=== PATIENT | female | born 2000 | race American Indian/Alaskan Native ===

== ENCOUNTER 2020-11-03 18:34 | Outpatient (CLI) | payer OTHER ==
[2020-11-03 22:03] VITALS: BP 112/64
[2020-11-03] MEDS ORDERED: LACTATED RINGERS 1,000 ML IV ONE (22:33)
[2020-11-04 00:29] LABS: Bilirubin,Urine NEG (Negative); Blood,Urine NEG (Negative); Color,Urine Yellow (Yellow); Protein,Urine <15 mg/dL mg/dL (Negative); Urobilinogen,Urine < 2.0 mg/dL (<2.0)
== END 2020-11-04 01:02 | disposition home or self-care (01) ==
LOC: TRG 18:34 → APU 18:59 → TRG 11-04 01:02
PROVIDERS: ATTEND Obstetrics & Gynecology
DX: O42.913 Preterm premature rupture of membranes, unspecified as to length of time between rupture and onset of labor, third trimester (principal); O47.03 False labor before 37 completed weeks of gestation, third trimester; O99.513 Diseases of the respiratory system complicating pregnancy, third trimester; J45.909 Unspecified asthma, uncomplicated; Z3A.31 31 weeks gestation of pregnancy; Z87.891 Personal history of nicotine dependence
CPT/HCPCS: 36415; 59025; 81001; 84112; 96360

== ENCOUNTER 2020-12-08 16:07 | Outpatient (CLI) | payer OTHER ==
[2020-12-08 17:09] VITALS: BP 110/64
[2020-12-08] MEDS ORDERED: LACTATED RINGERS 1,000 ML IV ONE (17:10)
--- NOTE | 2020-12-08 19:23 | Ultrasound Report ---
US OB BPP wo non-stress, US OB limited INDICATION / CLINICAL INFORMATION: low fluid well being. COMPARISON: None available. FINDINGS: Single live fetus is seen in the uterus in cephalic presentation. JENNIFER is normal at 10.9. heart rate is 140. BPP is 8/8 IMPRESSION: Single live fetus in the uterus in cephalic presentation with heart rate 140. A normal amount o f amniotic fluid is seen. BPP is 8/8 Signer Name: Laurent Peguero MD FACR Signed: 12/08/2020 7:19 PM Workstation Name: [id number]
== END 2020-12-08 20:15 | disposition home or self-care (01) ==
LOC: TRG 16:07 → APU 16:10 → TRG 20:15
PROVIDERS: ATTEND Obstetrics & Gynecology
DX: O41.03X0 Oligohydramnios, third trimester, not applicable or unspecified (principal); Z3A.36 36 weeks gestation of pregnancy
CPT/HCPCS: 76815; 76819

== ENCOUNTER 2020-12-18 22:43 | Outpatient (CLI) | payer OTHER ==
[2020-12-18 23:29] VITALS: BP 139/78
[2020-12-19] MEDS ORDERED: LACTATED RINGERS 1,000 ML ONE (01:02)
[2020-12-19] MEDS ORDERED: AMPICILLIN/NS 2 GM/100 ML 2 GM/100 ML BAG IV ONE (01:02)
== END 2020-12-19 01:15 | disposition home or self-care (01) ==
LOC: TRG 22:43 → APU 22:43 → TRG 12-19 01:15
PROVIDERS: ATTEND Obstetrics & Gynecology
DX: O62.9 Abnormality of forces of labor, unspecified (principal); O99.343 Other mental disorders complicating pregnancy, third trimester; F41.9 Anxiety disorder, unspecified; F32.9 Major depressive disorder, single episode, unspecified; Z3A.38 38 weeks gestation of pregnancy
CPT/HCPCS: 59025; Q0177

== ENCOUNTER 2020-12-24 19:50 | Outpatient (CLI) | payer OTHER ==
[2020-12-24 20:43] VITALS: BP 114/63
[2020-12-24] MEDS ORDERED: hydrOXYzine PAMOATE 25 MG CAP PO ONE (20:55)
[2020-12-24] MEDS ORDERED: LACTATED RINGERS 1000 ML IV SOLN IV SCH (21:00)
[2020-12-24 21:32] LABS: Bacteria,Urine 1+ /HPF (Negative); Bilirubin,Urine NEG (Negative); Blood,Urine LG (Negative); Color,Urine Yellow (Yellow); Mucus,Urine FEW /HPF
[2020-12-24] MEDS ORDERED: MORPHINE 4 MG/1 ML INJ IM ONE (22:41)
== END 2020-12-24 23:01 | disposition home or self-care (01) ==
LOC: TRG 19:50 → APU 19:54 → TRG 23:01
PROVIDERS: ATTEND Obstetrics & Gynecology
DX: O62.9 Abnormality of forces of labor, unspecified (principal); O46.93 Antepartum hemorrhage, unspecified, third trimester; O99.513 Diseases of the respiratory system complicating pregnancy, third trimester; J45.909 Unspecified asthma, uncomplicated; O99.343 Other mental disorders complicating pregnancy, third trimester; F41.9 Anxiety disorder, unspecified; F32.9 Major depressive disorder, single episode, unspecified; Z3A.38 38 weeks gestation of pregnancy
CPT/HCPCS: 59025; 81001; 96360; 96361; 96372; J2270; J7120; Q0177

== ENCOUNTER 2022-02-02 15:47 | Emergency (ER) | payer MEDICAID, OTHER ==
[2022-02-02] MEDS ORDERED: METOCLOPRAMIDE 10 MG/2 ML INJ IV ONE (19:59)
[2022-02-02] MEDS ORDERED: diphenhydrAMINE 50 MG/ML VIAL IV ONE (19:59)
[2022-02-02] MEDS ORDERED: D5W/0.9% NACL 1,000 ML IV SCH (20:00)
[2022-02-02 20:47] LABS: Basophils % (Auto) 0.8 % (0.0-1.8); Eosinophils % (Auto) 0.4 % (0.0-4.3); Hematocrit 35.2 % (30.3-42.9); Hemoglobin 11.4 gm/dl (10.1-14.3); Lymphocytes # (Auto) 1.6 K/mm3 (1.2-5.4); Lymphocytes % (Auto) 32.3 % (13.4-35.0); Mean Corpuscular HGB Conc 32 % (30-34); Mean Corpuscular Volume 85 fl (79-97); Monocytes # (Auto) 0.4 K/mm3 (0.0-0.8); Monocytes % (Auto) 7.1 % (0.0-7.3); Platelet Count 235 K/mm3 (140-440); Red Blood Count 4.16 M/mm3 (3.65-5.03); Red Cell Distribution Width 15.9 % (13.2-15.2)
[2022-02-02 21:04] LABS: Alanine Aminotransferase 118 units/L (7-56); BUN/Creatinine Ratio 12; Blood Urea Nitrogen 6 mg/dL (7-17); Calcium 9.3 mg/dL (8.4-10.2); Hemolysis Index 4
[2022-02-02] MEDS ORDERED: SODIUM CHLORIDE 0.9% 1000 ML 1,000 ML IV ONE (21:37)
--- NOTE | 2022-02-02 21:42 | Emergency Department Report ---
ED N/V/D HPI - General Chief complaint: Nausea/Vomiting/Diarrhea Stated complaint: 13 WKS PREG/NV Time Seen by Provider: 02/02/22 19:58 Source: patient Mode of arrival: Ambulatory Limitations: No Limitations - History of Present Illness Initial comments: Patient 21-year-old female who is currently 13 weeks , patient is G 12, P1, A 10 history of asthma patient is followed by the [facility] [employer] [facility] Dr. Hill. Patient states symptoms for the past 3 weeks. Now with bilateral lower abdominal cramping. Patient denies vaginal bleeding. No fevers no chills. Last prescription medication was Zofran for nausea vomiting last dose 5 days ago. Patient states she has been unable to get in to see OBGYN. Symptoms are exacerbated by p.o. intake. Symptoms are relieved by nothing tried. Patient denies vaginal bleeding there is no vaginal discharge no urinary frequency urgency or hematuria. Patient denies concern for STI. MD complaint: nausea, vomiting, abdominal pain - Related Data Home Medications Medication Instructions Recorded Confirmed Last Taken Ferrous Sulfate [Iron 325 MG] 1 tab PO DAILY 12/24/20 12/24/20 2 Weeks Ago ~12/10/20 Previous Rx's Medication Instructions Recorded Last Taken Type Doxylamine Succinate/Vit B6 1 each PO Q8H PRN #30 tab 02/03/22 Unknown Rx [Ricardo Cao 10-10 mg Tablet] Allergies Allergy/AdvReac Type Severity Reaction Status Date / Time No Known Allergies Allergy Verified 11/03/20 22:04 ED Review of Systems ROS: Stated complaint: 13 WKS PREG/NV Other details as noted in HPI Constitutional: denies: chills, fever Eyes: as per HPI ENT: denies: ear pain, throat pain Respiratory: denies: cough, shortness of breath, wheezing Cardiovascular: denies: chest pain, palpitations Endocrine: no symptoms reported Gastrointestinal: abdominal pain, nausea, vomiting. denies: diarrhea, constipation, hematemesis, melena Genitourinary: denies: urgency, dysuria, frequency, hematuria, discharge Musculoskeletal: back pain Skin: denies: rash, lesions Neurological: denies: headache, weakness, paresthesias, vertigo Psychiatric: denies: anxiety, depression Hematological/Lymphatic: denies: easy bleeding, easy bruising ED Past Medical Hx - Past Medical History Hx Hypertension: No Hx Diabetes: No Hx Deep Vein Thrombosis: No Hx Renal Disease: No Hx Sickle Cell Disease: No Hx Seizures: No Hx Asthma: Yes (last attack 2 months ago.) Hx HIV: No - Social History Smoking Status: Never Smoker - Medications Home Medications: Home Medications Medication Instructions Recorded Confirmed Last Taken Type Ferrous Sulfate [Iron 325 MG] 1 tab PO DAILY 12/24/20 12/24/20 2 Weeks Ago History ~12/10/20 Doxylamine Succinate/Vit B6 1 each PO Q8H PRN #30 tab 02/03/22 Unknown Rx [Diclegis Dr 10-10 mg Tablet] ED Physical Exam - General Limitations: No Limitations General appearance: alert, in no apparent distress - Head Head exam: Present: normocephalic, normal inspection - Eye Eye exam: Present: EOMI Pupils: Present: normal accommodation - ENT ENT exam: Present: mucous membranes moist - Neck Neck exam: Present: normal inspection, full ROM. Absent: tenderness, lymphadenopathy - Respiratory Respiratory exam: Present: normal lung sounds bilaterally. Absent: respiratory distress, wheezes, stridor, chest wall tenderness - Cardiovascular Cardiovascular Exam: Present: regular rate, normal rhythm, normal heart sounds. Absent: systolic murmur, diastolic murmur, rubs, gallop - GI/Abdominal GI/Abdominal exam: Present: soft, normal bowel sounds. Absent: distended, tenderness - Rectal Rectal exam: Present: deferred - Extremities Exam Extremities exam: Present: normal inspection, full ROM, normal capillary refill. Absent: pedal edema - Back Exam Back exam: Present: normal inspection, full ROM. Absent: CVA tenderness (R), CVA tenderness (L) - Neurological Exam Neurological exam: Present: alert, oriented X3 - Expanded Neurological Exam Expanded Patient oriented to: Present: person, place, time Speech: Present: fluid speech Motor strength exam: RUE: 5, LUE: 5, RLE: 5, LLE: 5 Best Eye Response ([place]): (4) open spontaneously Best Motor Response ([place]): (6) obeys commands Best Verbal Response ([place]): (5) oriented [place] Total: 15 - Psychiatric Psychiatric exam: Present: normal affect, normal mood - Skin Skin exam: Present: warm, dry, intact, normal color. Absent: rash ED Course Vital Signs 02/02/22 16:14 Temperature 97.8 F Pulse Rate 88 Respiratory 18 Rate Blood Pressure 117/58 [Left] O2 Sat by Pulse 99 Oximetry ED Medical Decision Making - Lab Data Result diagrams: 02/02/22 20:25 02/02/22 20:25 Labs 02/02/22 02/02/22 02/02/22 20:25 20:25 20:25 WBC 5.0 RBC 4.16 Hgb 11.4 Hct 35.2 MCV 85 MCH 27 L MCHC 32 RDW 15.9 H Plt Count 235 Lymph % (Auto) 32.3 [place] % (Auto) 7.1 Eos % (Auto) 0.4 Baso % (Auto) 0.8 Lymph # (Auto) 1.6 [place] # (Auto) 0.4 Eos # (Auto) 0.0 Baso # (Auto) 0.0 Seg Neutrophils % 59.4 Seg Neutrophils # 3.0 Sodium 138 Potassium 3.2 L Chloride 102.2 Carbon Dioxide 22 Anion Gap 17 BUN 6 L Creatinine 0.5 L Estimated GFR > 60 BUN/Creatinine Ratio 12 Glucose 81 Calcium 9.3 Total Bilirubin 0.50 AST 65 H ALT 118 H Alkaline Phosphatase 132 H Total Protein 7.3 Albumin 4.0 Albumin/Globulin Ratio 1.2 Lipase 24 HCG, Quant 19635 H Urine Color Urine Turbidity Urine pH Ur Specific [place] Urine Protein Urine Glucose (UA) Urine Ketones Urine Blood Urine Nitrite Urine Bilirubin Urine Urobilinogen Ur Leukocyte Esterase Urine WBC (Auto) Urine RBC (Auto) U Epithel Cells (Auto) Urine Bacteria (Auto) Urine Mucus 02/02/22 Unknown WBC RBC Hgb Hct MCV MCH MCHC RDW Plt Count Lymph % (Auto) [place] % (Auto) Eos % (Auto) Baso % (Auto) Lymph # (Auto) [place] # (Auto) Eos # (Auto) Baso # (Auto) Seg Neutrophils % Seg Neutrophils # Sodium Potassium Chloride Carbon Dioxide Anion Gap BUN Creatinine Estimated GFR BUN/Creatinine Ratio Glucose Calcium Total Bilirubin AST ALT Alkaline Phosphatase Total Protein Albumin Albumin/Globulin Ratio Lipase HCG, Quant Urine Color April Urine Turbidity Clear Urine pH 6.0 Ur Specific [place] 1.025 Urine Protein 100 mg/dl Urine Glucose (UA) Negative Urine Ketones 160 Urine Blood Negative Urine Nitrite Negative Urine Bilirubin Negative Urine Urobilinogen 0.2 Ur Leukocyte Esterase Negative Urine WBC (Auto) 4.0 Urine RBC (Auto) 1.0 U Epithel Cells (Auto) 11.0 Urine Bacteria (Auto) 1+ Urine Mucus 3+ - Radiology Data Radiology results: report reviewed, image reviewed REASON FOR EXAM: abdominal pain pos preg TECHNIQUE: Transabdominal ultrasound was performed to evaluate a first trimester . COMPARISON: None available. FINDINGS: FINDINGS: Single live intrauterine with heart rate measuring 161 bpm. measurements correspond to a gestational age of 13 weeks and 2 days. Amniotic fluid volume is subjectively normal. Tiny area of perigestational hemorrhage. Anterior placenta appears unremarkable on provided images. MATERNAL FINDINGS: The uterus demonstrates an otherwise unremarkable sonographic appearance. The right ovary demonstrates a normal sonographic appearance. The left ovary demonstrates a normal sonographic appearance. Cul-de-sac: There is no free fluid. IMPRESSION: 1. Single live intrauterine with ultrasound age of 13 weeks and 2 days. 2. Tiny area of perigestational hemorrhage. 3. No other significant abnormality. Signer Name: Shelli Ruiz MD Signed: 02/02/2022 11:44 PM Workstation Name: [id number] Transcribed By: NICOLE Dictated By: SHELLI RUIZ MD Electronically Authenticated By: SHELLI RUIZ MD Signed Date/Time: 02/02/222343 DD/ 39 TD/TT: - Medical Decision Making Symptoms are improved. Patient tolerating p.o. intake without nausea vomiting at this time. No fever or chills. Single IUP 13 weeks 2 days heart rate 161 bpm, labs noted as above UA noted normal plan DC to home, continue to hydrate as directed. Follow-up with your [employer] [employer] in 2 to 3 days. Return to emergency department should symptoms worsen. Patient verbalized agreement understanding of discharge plan DC to home in stable condition at this time. Critical care attestation.: If time is entered above; I have spent that time in minutes in the direct care of this critically ill patient, excluding procedure time. ED Disposition Clinical Impression: Nausea and vomiting during prior to 22 weeks gestation, Abdominal pain during in second trimester Disposition: 01 HOME / SELF CARE / HOMELESS Is pt being admited?: No Does the pt Need Aspirin: No Condition: Stable Instructions: Abdominal Pain During , Hyperemesis Gravidarum Additional Instructions: Take medications as prescribed, follow-up with your [employer] [employer] in 1 to 2 days. Return to emergency department should symptoms worsen. Prescriptions: Doxylamine Succinate/Vit B6 [Diclegis Dr 10-10 mg Tablet] 1 each PO Q8H PRN #30 tab PRN Reason: Nausea And Vomiting Referrals: DEIRDRE HILL MD [Staff Physician] - 3-5 Days Forms: Work/School Release Form(ED) Time of Disposition: 00:13
[2022-02-02 23:02] LABS: Bilirubin,Urine Negative (Negative); Blood,Urine Negative (Negative); Color,Urine Amber (Yellow); Urobilinogen,Urine 0.2 mg/dL (<2.0)
[2022-02-02 23:03] LABS: Bacteria,Urine 1+ /HPF (Negative); Mucus,Urine 3+ /HPF
--- NOTE | 2022-02-02 23:48 | Ultrasound Report ---
ULTRASOUND OBSTETRIC REASON FOR EXAM: abdominal pain pos preg TECHNIQUE: Transabdominal ultrasound was performed to evaluate a first trimester . COMPARISON: None available. FINDINGS: FINDINGS: Single live intrauterine with heart rate measuring 161 bpm. measurements corres pond to a gestational age of 13 weeks and 2 days. Amniotic fluid volume is subjectively normal. Tiny area of perigestational hemorrhage. Anterior placenta appears unremarkable on provided images. MATERNAL FINDINGS: The uterus demonstrates an otherwise unremarkable sonographic appearance. The right ovary demonstrates a normal sonographic appearance. The left ovary demonstrates a normal sonographic appearance. Cul-de-sac: There is no free fluid. IMPRESSION: 1. Single live intrauterine with ultrasound age of 13 weeks and 2 days. 2. Tiny area of perigestational hemorrhage. 3. No other significant abnormality. Signer Name: Mauricio Ruiz MD Signed: 02/02/2022 11:44 PM Workstation Name: [id number]
[2022-02-03 00:38] VITALS: BP 116/63
== END 2022-02-03 00:39 | disposition home or self-care (01) ==
LOC: ED 15:47
DX: O21.9 Vomiting of pregnancy, unspecified (principal); O26.891 Other specified pregnancy related conditions, first trimester; R10.9 Unspecified abdominal pain; Z3A.13 13 weeks gestation of pregnancy
CPT/HCPCS: 36415; 76801; 80053; 81001; 83690; 84702; 85025; 96374; 96375; 99284; J1200; J2765; J7042; J3490